=== PATIENT | female | born 1990 | race African-American/Black ===

== ENCOUNTER 2018-01-06 18:25 | Emergency (ER) | payer SELFPAY ==
[~2018-01-06] VITALS: Ht 162.6 cm; Wt 60.0 kg
[2018-01-06 18:38] VITALS: BP 120/58; PULSE 89; RESP 14; TEMP 98.4; O2SAT 100
[2018-01-06] MEDS ORDERED: IBUPROFEN 800 MG TAB PO ONE (19:15)
--- NOTE | 2018-01-06 19:43 | PD ---
HPI Chief Complaint: Lump, Cyst, Hernia Time Seen by Provider: 19:04 Travel History International Travel<30 days: No Contact w/Intl Traveler<30days: No Traveled to known affect area: No History of Present Illness HPI 27-year-old female presents to emergency department with complaint of left breast pain and a palpable lump that she noticed a month ago with worsening of pain over the past week. Reports swelling of her left breast. Says she does have some nipple discharge and has noticed it for the past 2 months. The nipple discharge is only when she squeezes her nipple. She denies change in breast skin. Denies fever, vomiting. Has not taken any medications or try any treatments to alleviate her symptoms. Rates pain 10/10. Worse with palpation. No known relieving factors. Allergies to peanuts and barbecue sauce. History of asthma. Primary care provider is Dr. Soni. Has no other medical complaints. No other modifying factors or associated signs and symptoms. PFSH Past Medical History Respiratory: Yes (Asthma) ?: Not LMP: begining of month Social History Tobacco Use: No Allergies-Medications (Allergen,Severity, Reaction): Coded Allergies: peanut (Verified Allergy, Severe, Rash, 01/06/18) Uncoded Allergies: BARBEQUE SAUCE (Allergy, Severe, Rash, 01/06/18) Reported Meds & Prescriptions Reported Meds & Active Scripts Active Ibuprofen 800 Mg Tab 800 Mg PO Q6HR PRN Review of Systems Except as stated in HPI: all other systems reviewed are Neg Physical Exam Narrative GENERAL: Well-nourished, well-developed black female patient, in no acute distress; afebrile, nontoxic-appearing SKIN: Warm and dry. HEAD: Atraumatic. Normocephalic. EYES: Pupils equal and round. No scleral icterus. No injection or drainage. ENT: Mucosa pink and moist. Airway patent. NECK: Trachea midline. BREAST: Palpable lump to the left breast at approximately the 3 o'clock position; area is with tenderness on palpation; breast is without erythema or edema. Exam of the right breast is unremarkable. No nipple discharge. No skin dimpling. No left or right axillary lymphadenopathy. CARDIOVASCULAR: Regular rate. RESPIRATORY: No accessory muscle use. GASTROINTESTINAL: Flat. MUSCULOSKELETAL: No obvious deformities. No clubbing. No cyanosis. No edema. NEUROLOGICAL: Awake and alert. Oriented 3. No obvious cranial nerve deficits. Motor grossly within normal limits. Normal speech. PSYCHIATRIC: Appropriate mood and affect; insight and judgment normal. Data Data Last Documented VS Vital Signs Date Time Temp Pulse Resp B/P (MAP) Pulse Ox O2 Delivery O2 Flow Rate FiO2 01/06/18 18:38 98.4 89 14 120/58 (78) 100 Orders Orders Ibuprofen (Motrin) (01/06/18 19:15) Us Breast Unilateral (01/06/18 ) Ed Discharge Order (01/06/18 20:31) Mandatory Outpatient Referral (01/06/18 20:36) [facility] Medical Decision Making Medical Screen Exam Complete: Yes Emergency Medical Condition: Yes Medical Record Reviewed: Yes Differential Diagnosis Breast abscess, cyst, nonspecific breast lump Narrative Course 27-year-old female with a palpable left breast lump at the 3 o'clock position. Ibuprofen and left breast ultrasound ordered. 0828: Left breast ultrasound concluded: Breast Ultrasound 01/06/18 0000 Signed Impressions: CONCLUSION: 1. No abscess. Patient provided a copy of ultrasound report. Patient does not know if she has insurance and we cannot verify if patient has insurance at this time, because Medicaid portal is down. I ordered a mandatory outpatient referral for follow- up because he cannot verify if the patient had insurance or not. patient to follow-up with [facility]. Ibuprofen prescribed for home. Instructed patient to follow up with primary care provider. Patient verbalizes understanding and agreement with treatment plan. Patient is medically cleared and stable for discharge. Discussed reasons to return to the emergency department. Patient agrees with treatment plan. The patients vital signs are stable and the patient is stable for outpatient follow-up and treatment. Patient discharged home, stable and in no acute distress. Diagnosis Primary Impression: Painful lumpy left breast Referrals: [facility] Primary Care Physician Patient Instructions: General Instructions Departure Forms: Tests/Procedures, Work Release Enter return to work date: Jan 07, 2018 Additional Instructions: Ibuprofen or Tylenol as directed and as needed for pain Follow-up with primary care provider Return to the emergency department immediately with worsening symptom Med/Other Pt SpecificInfo: Prescription(s) given Scripts Ibuprofen (Ibuprofen) 800 Mg Tab 800 MG PO Q6HR Y for PAIN, #30 TAB 0 Refills Prov: Anayeli Ziegler 01/06/18 Disposition: 01 DISCHARGE HOME Condition: Stable Anayeli Ziegler Jan 06, 2018 19:43
--- NOTE | 2018-01-06 20:21 | RADRPT ---
EXAM DATE: 01/06/2018 8:07 PM EDT AGE/SEX: 27 years / Female INDICATIONS: Left breast pain and swelling. Evaluate for abscess. CLINICAL DATA: This is the patient's initial encounter. Patient reports that signs and symptoms have been present for 3 days and indicates a pain score of 4/10. MEDICAL/SURGICAL HISTORY: Asthma. None. COMPARISON: None . TECHNIQUE: Real-time ultrasound examination was performed using a high-frequency transducer. Conven tional and compound scanning techniques were used. FINDINGS: Limited sonographic images of the left breast were performed in the 1 to 2:00 position to evaluate fo r abscess. No abscess or fluid collection observed. This study is not geared towards evaluating for p ossible malignancy. CONCLUSION: 1. No abscess. Electronically signed by: Fly Wiseman MD 01/06/2018 8:19 PM EDT
[2018-01-06] MEDS ORDERED: IBUP1TAB7 PO (20:30)
== END 2018-01-06 21:36 | disposition home or self-care (01) ==
LOC: NEPK 18:25
DX: N64.4 Mastodynia (principal); J45.909 Unspecified asthma, uncomplicated
CPT/HCPCS: 76642; 99284